=== PATIENT | female | born 1945 | race Caucasian/White ===

== ENCOUNTER 2016-12-15 18:26 | Inpatient (IN) | payer MEDICARE, MEDICAID ==
[~2016-12-15] VITALS: Ht 157.5 cm; Wt 59.4 kg
[2016-12-15] MEDS ORDERED: SODIUM CHLORIDE FLUSH 10ML SYR IVF ONE (19:00)
[2016-12-15 19:12] LABS: ASPARTATE AMINO TRANSFERASE 35 U/L (15-37); BLOOD UREA NITROGEN 27 mg/dL (7-18)
[2016-12-15 19:18] LABS: IS PT STATUS REG ER OR PRE ER? YES
[2016-12-15] MEDS ORDERED: HEPARIN 25,000 UNITS/500ML PMX 500 ML IV PRN (20:00)
[2016-12-15] MEDS ORDERED: HEPARIN 5,000 UNITS/ML, 1ML IV ONE (20:00)
[2016-12-15] MEDS ORDERED: HEPARIN 5,000 UNITS/ML, 1ML IV PRN (20:00)
[2016-12-15] MEDS ORDERED: HEPARIN 5,000 UNITS/ML, 1ML ONE (20:05)
[2016-12-15] MEDS ORDERED: HEPARIN 25,000 UNITS/500ML PMX 500 ML ONE (20:05)
[2016-12-15] MEDS ORDERED: ACETAMINOPHEN 325 MG TABLET PO PRN (21:00)
[2016-12-15] MEDS ORDERED: ONDANSETRON ODT 4 MG PO PRN (21:00)
[2016-12-15] MEDS ORDERED: DOCUSATE 100 MG CAPSULE PO PRN (21:00)
[2016-12-15] MEDS ORDERED: BISACODYL 10 MG SUPP PR PRN (21:00)
[2016-12-15] MEDS ORDERED: LABETALOL 5MG/ML, 20ML IVPush PRN (21:00)
[2016-12-15] MEDS ORDERED: POLYETHYLENE GLYCOL 17 GM PACKET PO PRN (21:00)
[2016-12-15 22:37] VITALS: BP 160/91
[2016-12-15] MEDS: NS + 20MEQ KCL 1,000 ML IV SCH (23:05)
[2016-12-15] MEDS: ATORVASTATIN 80 MG TABLET PO SCH (23:05)
[2016-12-15] MEDS: NICOTINE 14MG/24 HR PATCH.TD24 TD SCH (23:05)
[2016-12-15] MEDS: TRAZODONE 50MG TABLET PO PRN (23:56)
[2016-12-16 00:45] LABS: IS PT STATUS REG ER OR PRE ER? NO
[2016-12-16] MEDS: TRAZODONE 50MG TABLET PO PRN (00:47)
[2016-12-16 01:10] VITALS: BP 153/80
[2016-12-16 05:25] LABS: ASPARTATE AMINO TRANSFERASE 32 U/L (15-37); BLOOD UREA NITROGEN 31 mg/dL (7-18)
[2016-12-16 05:32] LABS: IS PT STATUS REG ER OR PRE ER? NO
[2016-12-16 07:45] VITALS: BP_SYST 167; BP_SYST 170; BP_DIAS 90; BP_DIAS 94
[2016-12-16] MEDS ORDERED: HEPARIN 5,000 UNITS/ML, 1ML IV ONE (08:30)
[2016-12-16] MEDS ORDERED: HEPARIN 5,000 UNITS/ML, 1ML IV PRN (08:30)
[2016-12-16] MEDS ORDERED: HEPARIN 25,000 UNITS/500ML PMX 500 ML IV PRN (08:30)
[2016-12-16] MEDS: FOLIC ACID 1 MG TABLET PO SCH (08:38)
[2016-12-16] MEDS: AZITHROMYCIN 500 MG TABLET PO SCH (08:38)
[2016-12-16] MEDS: ASPIRIN 81 MG TABLET CHEW PO SCH (08:38)
[2016-12-16] MEDS: THIAMINE 100MG TABLET PO SCH (08:38)
[2016-12-16 08:42] VITALS: BP 158/87
[2016-12-16] MEDS ORDERED: LORazepam 2 MG/ML, 1ML IVPush PRN (10:30)
[2016-12-16] MEDS ORDERED: OMNIPAQUE 350 MG/ML, 100ML BOTTLE ONE (10:35)
[2016-12-16] MEDS: CHLORDIAZEPOXIDE 10 MG CAPSULE PO SCH ×3 (11:45→20:32)
[2016-12-16] MEDS: NS + 20MEQ KCL 1,000 ML IV SCH (11:45)
[2016-12-16] MEDS ORDERED: REGADENOSON 0.4 MG/5 ML SYRINGE ONE (13:43)
[2016-12-16 15:44] VITALS: BP 166/83
[2016-12-16 19:00] VITALS: BP 164/84
[2016-12-16] MEDS: ATORVASTATIN 80 MG TABLET PO SCH (20:32)
[2016-12-16] MEDS: NICOTINE 14MG/24 HR PATCH.TD24 TD SCH (20:33)
[2016-12-17] MEDS: TRAZODONE 50MG TABLET PO PRN (00:13)
[2016-12-17] MEDS: NS + 20MEQ KCL 1,000 ML IV SCH ×2 (00:13→12:49)
[2016-12-17 03:16] VITALS: BP 160/87
[2016-12-17] MEDS: FOLIC ACID 1 MG TABLET PO SCH (09:00)
[2016-12-17 09:57] VITALS: BP 160/87
[2016-12-17] MEDS: THIAMINE 100MG TABLET PO SCH (10:02)
[2016-12-17] MEDS: ASPIRIN 81 MG TABLET CHEW PO SCH (10:02)
[2016-12-17] MEDS: AZITHROMYCIN 500 MG TABLET PO SCH (10:02)
[2016-12-17] MEDS ORDERED: ASPI-621 PO (11:54)
[2016-12-17] MEDS ORDERED: ATOR40TA78 PO (11:54)
[2016-12-17] MEDS ORDERED: AZIT250T PO (11:55)
[2016-12-17] MEDS ORDERED: CYAN1TAB2 PO (11:58)
[2016-12-17] MEDS ORDERED: PRED10TA PO (12:00)
[2016-12-17 13:37] VITALS: BP 151/78
[2016-12-17] MEDS ORDERED: LORazepam 0.5MG TABLET PO ONE (16:30)
[2016-12-17 20:00] VITALS: BP 164/85
[2016-12-17] MEDS ORDERED: LORazepam 1MG TABLET ONE (20:10)
[2016-12-17] MEDS: LORazepam 1MG TABLET PO PRN (20:13)
[2016-12-17] MEDS: ATORVASTATIN 80 MG TABLET PO SCH (20:55)
[2016-12-17] MEDS: NICOTINE 14MG/24 HR PATCH.TD24 TD SCH (20:56)
[2016-12-18] MEDS: NS + 20MEQ KCL 1,000 ML IV SCH (02:09)
[2016-12-18] MEDS: LORazepam 1MG TABLET PO PRN (03:07)
[2016-12-18 03:59] VITALS: BP 167/97
[2016-12-18 08:00] VITALS: BP 173/86
[2016-12-18] MEDS: FOLIC ACID 1 MG TABLET PO SCH (09:09)
[2016-12-18] MEDS: ASPIRIN 81 MG TABLET CHEW PO SCH (09:09)
[2016-12-18] MEDS: THIAMINE 100MG TABLET PO SCH (09:09)
[2016-12-18] MEDS: AZITHROMYCIN 500 MG TABLET PO SCH (09:09)
[2016-12-18] MEDS ORDERED: AMLODIPINE 2.5 MG TABLET PO SCH (10:00)
[2016-12-18] MEDS ORDERED: AMLO2.5T2 PO (10:11)
== END 2016-12-18 13:10 | disposition home or self-care (01) | DRG 291 ==
LOC: ED 19:20 → EDIP 19:34 → 5SO 22:06 → 4NOR 12-17 18:43
PROVIDERS: ADMIT Internal Medicine; ATTEND Internal Medicine
DX: I11.0 Hypertensive heart disease with heart failure (principal); E43 Unspecified severe protein-calorie malnutrition; J44.1 Chronic obstructive pulmonary disease with (acute) exacerbation; J96.11 Chronic respiratory failure with hypoxia; I50.20 Unspecified systolic (congestive) heart failure; E87.6 Hypokalemia; E88.09 Other disorders of plasma-protein metabolism, not elsewhere classified; I48.91 Unspecified atrial fibrillation; F12.10 Cannabis abuse, uncomplicated; F17.210 Nicotine dependence, cigarettes, uncomplicated; I27.2 Other secondary pulmonary hypertension; F31.9 Bipolar disorder, unspecified; K62.3 Rectal prolapse; Z79.82 Long term (current) use of aspirin; Z79.899 Other long term (current) drug therapy; Z91.19 Patient's noncompliance with other medical treatment and regimen; Z99.81 Dependence on supplemental oxygen; Z90.49 Acquired absence of other specified parts of digestive tract
CPT/HCPCS: 36415; 71010; 71275; 78452; 80053; 83735; 83880; 84439; 84443; 84484; 85025; 85379; 85520; 85610; 85730; 87324; 93005; 93017; 93306; 96365; 96375; J1644; J2785; J3480; Q9967; A9502; C9898; J2060; J7512